=== PATIENT | female | born 1990 | race Two or more races ===

== ENCOUNTER 2021-11-15 04:30 | Inpatient (IN) | payer BC, OTHER ==
[2021-11-15] MEDS ORDERED: BUTORPHANOL TARTRATE 1 MG/ML VIAL ONE (06:09)
[2021-11-15] MEDS ORDERED: PROMETHAZINE HCL 25 MG/1 ML VIAL ONE (06:10)
[2021-11-15] MEDS ORDERED: ELECTROLYTE-148 SOLN 1,000 ML IV SCH (06:30)
[2021-11-15 06:31] VITALS: BMI 28.1
[2021-11-15] MEDS ORDERED: BUTORPHANOL TARTRATE 1 MG/ML VIAL IM ONE (06:42)
[2021-11-15] MEDS ORDERED: PROMETHAZINE HCL 25 MG/1 ML VIAL IVPB ONE (06:44)
[2021-11-15 07:37] LABS: HEMATOCRIT 34.1 % (32.4-45.2); HEMOGLOBIN 11.3 GM/dL (10.7-15.3); MCH 26.9 pg (25.7-33.7); MCHC 33.1 g/dl (32.0-36.0); MEAN CELL VOLUME 81.3 fl (80-96); MEAN PLT VOLUME 9.1 fl (7.5-11.1); PLATELET COUNT 271 10^3/uL (134-434); RBC 4.19 M/mm3 (3.60-5.2); RDW 14.2 % (11.6-15.6); WHITE BLOOD COUNT 16.3 K/mm3 (4.0-10.0)
[2021-11-15 07:48] LABS: INR 0.93 (0.83-1.09); PROTHROMBIN TIME (PATIENT) 10.7 SEC (9.7-13.0)
[2021-11-15 07:51] LABS: ACTIVATED PTT 27.8 SECONDS (25.2-36.5)
[2021-11-15 07:57] LABS: CALCIUM 9.3 mg/dL (8.5-10.1)
[2021-11-15 07:58] LABS: BLOOD UREA NITROGEN 10.3 mg/dL (7-18)
[2021-11-15 08:01] LABS: CREATININE 0.7 mg/dL (0.55-1.3)
[2021-11-15] MEDS ORDERED: OXYTOCIN 20 UNITS in 0.9% NS 20 UNIT/1,000 ML INFUS.BAG IV ONE (08:07)
[2021-11-15] MEDS ORDERED: LIDOCAINE HCL 1% PRESERVATIVE FREE - 30ML VIAL ONE (08:07)
[2021-11-15 09:51] LABS: ANISOCYTOSIS 0; MACROCYTOSIS 0
[2021-11-15] MEDS ORDERED: WITCH HAZEL 50% (TUCKS) 40 PAD/JAR PAD TP PRN (10:44)
[2021-11-15] MEDS ORDERED: BENZOCAINE 28 GM HEMORRHOIDAL OINTMENT TP PRN (10:44)
[2021-11-15] MEDS ORDERED: METHYLERGONOVINE MALEATE 0.2 MG/1 ML AMP IM PRN (10:44)
[2021-11-15] MEDS ORDERED: BISACODYL 10 MG SUPP.RECT RC PRN (10:44)
[2021-11-15] MEDS ORDERED: BENZOCAINE 20% 57 GM BOTTLE TP PRN (10:44)
[2021-11-15] MEDS ORDERED: oxyCODONE HCL 5 MG TABLET PO PRN (10:44)
[2021-11-15] MEDS ORDERED: ACETAMINOPHEN 325 MG TABLET (FP) PO PRN (10:44)
[2021-11-15] MEDS ORDERED: OXYTOCIN 20 UNITS in 0.9% NS 20 UNIT/1,000 ML INFUS.BAG IV SCH (10:45)
[2021-11-15] MEDS: IBUPROFEN 600 MG TABLET (FP) PO PRN (20:02)
[2021-11-16 12:02] LABS: BASO % 0.3 % (0-2.0); HEMATOCRIT 23.6 % (32.4-45.2); HEMOGLOBIN 7.8 GM/dL (10.7-15.3); LYMPH % 6.7 % (8-40); MCH 26.9 pg (25.7-33.7); MEAN CELL VOLUME 81.4 fl (80-96); MEAN PLT VOLUME 8.4 fl (7.5-11.1); MONO % 4.1 % (3.8-10.2); NEUT % 88.9 % (42.8-82.8); PLATELET COUNT 208 10^3/uL (134-434); RDW 14.3 % (11.6-15.6); WHITE BLOOD COUNT 17.3 K/mm3 (4.0-10.0)
[2021-11-16] MEDS: IBUPROFEN 600 MG TABLET (FP) PO PRN (19:27)
[2021-11-16] MEDS: FERROUS SO4 325 MG TABLET (FP) PO SCH (21:47)
[2021-11-16] MEDS ORDERED: SENNOSIDES/DOCUSATE COMBO (SENNA PLUS) TABLET (UD) PO PRN (22:00)
[2021-11-17] MEDS: FERROUS SO4 325 MG TABLET (FP) PO SCH ×2 (09:16→12:19)
[2021-11-17 09:42] VITALS: BP 114/75; PULSE 105; RESP 16; TEMP 98.9
[2021-11-17] MEDS: IBUPROFEN 600 MG TABLET (FP) PO PRN (12:18)
== END 2021-11-17 15:10 | disposition home or self-care (01) | DRG 806 ==
LOC: JDEL 04:30 → JLDR 05:15 → J3W 11:25
PROVIDERS: ADMIT Specialist; ATTEND Specialist
PROC: 10E0XZZ Delivery of Products of Conception, External Approach (ICD-10-PCS; principal; 2021-11-15)
PROC: 0W8NXZZ Division of Female Perineum, External Approach (ICD-10-PCS; 2021-11-15)
DX: O48.0 Post-term pregnancy (principal); O72.1 Other immediate postpartum hemorrhage; Z37.0 Single live birth; O69.81X0 Labor and delivery complicated by cord around neck, without compression, not applicable or unspecified; Z3A.41 41 weeks gestation of pregnancy
CPT/HCPCS: 36415; 59409; 80048; 85025; 85610; 85730; 86780; 86850; 86900; 86901; C9803-CS; U0003; U0005

== ENCOUNTER 2023-03-03 04:28 | Inpatient (IN) | payer OTHER ==
[2023-03-03] MEDS: CLINDAMYCIN 900 MG PREMIX IVPB 900 MG/50 ML BAG IVPB SCH (17:30)
[2023-03-03] MEDS ORDERED: CLINDAMYCIN 900 MG PREMIX IVPB 900 MG/50 ML BAG IVPB ONE (17:32)
[2023-03-03] MEDS ORDERED: BUTORPHANOL TARTRATE 2 MG/ML VIAL IVPB ONE (17:40)
[2023-03-03] MEDS ORDERED: PROMETHAZINE HCL 25 MG/1 ML VIAL IVPB ONE (17:40)
[2023-03-03] MEDS ORDERED: BUTORPHANOL TARTRATE 2 MG/ML VIAL ONE (17:42)
[2023-03-03] MEDS ORDERED: PROMETHAZINE HCL 25 MG/1 ML VIAL ONE (17:42)
[2023-03-03] MEDS ORDERED: ELECTROLYTE-148 SOLN 1,000 ML IV SCH ×2 (17:45→18:15)
[2023-03-03 17:51] VITALS: BMI 30.5
[2023-03-03] MEDS ORDERED: OXYTOCIN 20 UNITS in 0.9% NS 20 UNIT/1,000 ML INFUS.BAG IV ONE ×2 (17:59→19:10)
[2023-03-03] MEDS ORDERED: LIDOCAINE HCL 1% PRESERVATIVE FREE - 30ML VIAL ONE (17:59)
[2023-03-03] MEDS ORDERED: IBUPROFEN 600 MG TABLET (FP) PO PRN (18:17)
[2023-03-03] MEDS ORDERED: ACETAMINOPHEN 325 MG TABLET (FP) PO PRN (18:17)
[2023-03-03] MEDS ORDERED: WITCH HAZEL 50% (TUCKS) 40 PAD/JAR PAD TP PRN (18:17)
[2023-03-03] MEDS ORDERED: BENZOCAINE 20% 57 GM BOTTLE TP PRN (18:17)
[2023-03-03] MEDS ORDERED: METHYLERGONOVINE MALEATE 0.2 MG/1 ML AMP IM PRN (18:17)
[2023-03-03] MEDS ORDERED: BENZOCAINE 28 GM HEMORRHOIDAL OINTMENT TP PRN (18:17)
[2023-03-03] MEDS ORDERED: BISACODYL 10 MG SUPP.RECT RC PRN (18:17)
[2023-03-03] MEDS ORDERED: oxyCODONE HCL 5 MG TABLET PO PRN (18:17)
[2023-03-03] MEDS ORDERED: IBUPROFEN 600 MG TABLET (FP) PO ONE (18:26)
[2023-03-03] MEDS ORDERED: OXYTOCIN 20 UNITS in 0.9% NS 20 UNIT/1,000 ML INFUS.BAG IV SCH (18:30)
[2023-03-03 19:03] LABS: HEMATOCRIT 31.9 % (32.4-45.2); HEMOGLOBIN 10.1 GM/dL (10.7-15.3); MCH 24.6 pg (25.7-33.7); MCHC 31.8 g/dl (32.0-36.0); MEAN CELL VOLUME 77.5 fl (80-96); MEAN PLT VOLUME 7.9 fl (7.5-11.1); PLATELET COUNT 305 10^3/uL (134-434); RBC 4.11 M/mm3 (3.60-5.2); RDW 16.9 % (11.6-15.6); WHITE BLOOD COUNT 19.1 K/mm3 (4.0-10.0)
[2023-03-03 19:10] LABS: INR 1.03 (0.83-1.09)
[2023-03-03] MEDS ORDERED: CARBOPROST TROMETHAMINE 250 MCG/ML AMPUL IM ONE (19:15)
[2023-03-03 19:40] LABS: POTASSIUM 3.6 mmol/L (3.5-5.1)
[2023-03-03 19:41] LABS: CALCIUM 8.2 mg/dL (8.5-10.1)
[2023-03-03 19:45] LABS: CREATININE 0.5 mg/dL (0.55-1.3)
[2023-03-03 20:02] LABS: SYPHILIS W/ RPR CONF NON-REACTIVE (NONREACTIVE)
[2023-03-03 20:31] LABS: HIV INTERPRETATION NEGATIVE (NEGATIVE)
[2023-03-03 21:37] LABS: ANISOCYTOSIS 1+; MACROCYTOSIS 1+; OVALOCYTE 1+
[2023-03-03 21:38] LABS: PLATELET ESTIMATE ADEQUATE
[2023-03-04] MEDS: CLINDAMYCIN 900 MG PREMIX IVPB 900 MG/50 ML BAG IVPB SCH ×3 (01:25→16:29)
[2023-03-04 06:25] LABS: BASO % 0.2 % (0-2.0); EOS % 0.4 % (0-4.5); HEMOGLOBIN 9.6 GM/dL (10.7-15.3); LYMPH % 9.8 % (8-40); MCH 24.8 pg (25.7-33.7); MCHC 31.9 g/dl (32.0-36.0); MEAN CELL VOLUME 77.5 fl (80-96); MEAN PLT VOLUME 8.4 fl (7.5-11.1); MONO % 5.5 % (3.8-10.2); NEUT % 84.1 % (42.8-82.8); PLATELET COUNT 270 10^3/uL (134-434); RBC 3.87 M/mm3 (3.60-5.2); RDW 17.1 % (11.6-15.6); WHITE BLOOD COUNT 15.4 K/mm3 (4.0-10.0)
[2023-03-04] MEDS: FERROUS SO4 325 MG TABLET (FP) PO SCH ×3 (09:00→17:22)
[2023-03-04] MEDS: PRENATAL VITAMINS W/ FOLIC ACID TABLET (FP) PO SCH (10:58)
[2023-03-04 14:04] LABS: POC NITRAZINE POS
[2023-03-04] MEDS ORDERED: SENNOSIDES/DOCUSATE COMBO (SENNA PLUS) TABLET (UD) PO PRN (22:00)
[2023-03-04 23:51] VITALS: RESP 17
[2023-03-05] MEDS: CLINDAMYCIN 900 MG PREMIX IVPB 900 MG/50 ML BAG IVPB SCH (00:26)
[2023-03-05] MEDS: FERROUS SO4 325 MG TABLET (FP) PO SCH (08:20)
[2023-03-05 08:25] VITALS: BP 114/71; PULSE 95; TEMP 98
[2023-03-05] MEDS: PRENATAL VITAMINS W/ FOLIC ACID TABLET (FP) PO SCH (09:06)
== END 2023-03-05 13:05 | disposition home or self-care (01) | DRG 560 ==
LOC: JLDR 04:28 → UNDOADMIN 04:28 → JLDR 16:28 → J3W 20:41
PROVIDERS: ADMIT Obstetrics & Gynecology; ATTEND Obstetrics & Gynecology
PROC: 10E0XZZ Delivery of Products of Conception, External Approach (ICD-10-PCS; principal; 2023-03-03)
PROC: 0HQ9XZZ Repair Perineum Skin, External Approach (ICD-10-PCS; 2023-03-03)
PROC: 0UC97ZZ Extirpation of Matter from Uterus, Via Natural or Artificial Opening (ICD-10-PCS; 2023-03-03)
DX: O48.0 Post-term pregnancy (principal); O42.12 Full-term premature rupture of membranes, onset of labor more than 24 hours following rupture; O72.2 Delayed and secondary postpartum hemorrhage; Z3A.41 41 weeks gestation of pregnancy; Z37.0 Single live birth
CPT/HCPCS: 36415; 80048; 83986-QW; 85025; 85610; 85730; 86780; 86850; 86900; 86901; 87389